=== PATIENT | male | born 1990 | race Caucasian/White ===

== ENCOUNTER 2024-07-23 17:25 | Emergency (ER) | payer OTHER, SELFPAY ==
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
[2024-07-23 17:38] VITALS: BP 146/79; PULSE 127; RESP 16; TEMP 36.6; O2SAT 100
[2024-07-23] MEDS: TETANUS,DIPHTHERIA,AC PERTUSSIS ADULT (0.5 ML) BOOSTRIX IM (17:45)
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
== END 2024-07-23 18:15 | disposition home or self-care (01) ==
PROVIDERS: Emergency Provider Nurse Practitioner Family
DX: S81.812A Laceration without foreign body, left lower leg, initial encounter (principal); S80.12XA Contusion of left lower leg, initial encounter; V86.06XA Driver of dirt bike or motor/cross bike injured in traffic accident, initial encounter; Z23 Encounter for immunization
CPT/HCPCS: 73590; 90471; 90715; 99213; G0463